=== PATIENT | female | born 1935 | race Caucasian/White ===

== ENCOUNTER 2023-12-03 20:48 | Inpatient (IN) | payer MEDICARE ==
[2023-12-03 23:25] VITALS: BMI 21.4
[2023-12-04] MEDS ORDERED: Acetaminophen 325 MG TAB PO PRN (00:27)
[2023-12-04] MEDS ORDERED: Acetaminophen 650 MG Suppository PR PRN (00:27)
[2023-12-04] MEDS ORDERED: hydrALAZINE 20 MG/ML VIAL SLOW IVP PRN (00:27)
[2023-12-04] MEDS ORDERED: Labetalol HCl 100 MG/20 ML VIAL SLOW IVP PRN (00:27)
[2023-12-04 01:58] LABS: #Basophils 0.06 10x3/uL (0.0-0.2); %Basophils 0.8 % (0.0-1.0); %Eosinophils 1.9 % (0.0-10.0); %Lymphocytes 25.5 % (21.0-51.0); %Monocytes 6.9 % (0.0-10.0); %Neutrophils 64.5 % (42.0-75.0); Hematocrit 41.4 % (36.0-47.0); Hemoglobin 12.6 g/dL (12.0-16.0); Mean Corpuscular HGB CONC 30.4 g/dL (32.0-36.0); Mean Corpuscular Hemoglobin 28.3 pg (27.0-31.0); Mean Corpuscular Volume 92.8 fL (78.0-98.0); Mean Platelet Volume 10.4 fL (7.4-10.4); Platelet Count 205 10x3/uL (130-400); RBC Distribution Width 13.6 % (11.5-14.5); Red Blood Cell (RBC) Count 4.46 mill/uL (4.20-5.40)
[2023-12-04 02:05] LABS: Hemoglobin A1c 5.5 % (4.0-6.0)
[2023-12-04 02:07] LABS: Anion Gap 13 mmol/L (10-20); BUN (Urea Nitrogen) 34 mg/dL (9.8-20.1); Calc. Creatinine Clearance 28 mL/min (70-130); Calcium 9.3 mg/dL (7.8-10.44); Carbon Dioxide 20 mmol/L (23-31); Cardiac Risk 3.4 (Less than 4.5); Chloride 107 mmol/L (98-107); Cholesterol 152 mg/dl (< 200 Desired); Estimated GFR 39; Glucose 96 mg/dL (83-110); HDL Cholesterol 45 mg/dL (>60 Neg Risk); LDL Cholesterol, Calculated 94 mg/dL; Sodium 136 mmol/L (136-145); Triglycerides 63 mg/dL (Less than 150)
[2023-12-04] MEDS: Melatonin 3 MG TAB PO SCH (07:45)
[2023-12-04] MEDS: Aspirin 81 mg Enteric Coated Tablet PO SCH (08:42)
[2023-12-04] MEDS: Folic Acid 1 MG TAB PO SCH (08:42)
[2023-12-04] MEDS: Melatonin 3 MG TAB PO PRN (21:10)
[2023-12-04] MEDS: Atorvastatin Calcium 40 MG TAB PO SCH (21:10)
[2023-12-05 09:32] LABS: #Basophils 0.03 10x3/uL (0.0-0.2); %Basophils 0.5 % (0.0-1.0); %Eosinophils 2.2 % (0.0-10.0); %Lymphocytes 21.9 % (21.0-51.0); %Monocytes 5.6 % (0.0-10.0); %Neutrophils 69.5 % (42.0-75.0); Hematocrit 41.1 % (36.0-47.0); Hemoglobin 13.1 g/dL (12.0-16.0); Mean Corpuscular HGB CONC 31.9 g/dL (32.0-36.0); Mean Corpuscular Hemoglobin 28.4 pg (27.0-31.0); Mean Platelet Volume 10.2 fL (7.4-10.4); Platelet Count 206 10x3/uL (130-400); RBC Distribution Width 13.6 % (11.5-14.5); Red Blood Cell (RBC) Count 4.62 mill/uL (4.20-5.40)
[2023-12-05 09:48] LABS: Anion Gap 11 mmol/L (10-20); BUN (Urea Nitrogen) 20 mg/dL (9.8-20.1); Calc. Creatinine Clearance 31 mL/min (70-130); Calcium 9.5 mg/dL (7.8-10.44); Carbon Dioxide 27 mmol/L (23-31); Chloride 108 mmol/L (98-107); Estimated GFR 45; Glucose 118 mg/dL (83-110); Potassium 4.1 mmol/L (3.5-5.1); Sodium 142 mmol/L (136-145)
[2023-12-05 11:44] VITALS: BP 160/67; TEMP 97.1
== END 2023-12-05 14:58 | disposition home or self-care (01) | DRG 69 ==
LOC: 2SW 23:12 → OBSVTOIN 12-05 10:19
PROVIDERS: ADMIT Internal Medicine; ATTEND Internal Medicine
DX: G45.9 Transient cerebral ischemic attack, unspecified (principal); I10 Essential (primary) hypertension; G62.9 Polyneuropathy, unspecified; Z66 Do not resuscitate; I65.23 Occlusion and stenosis of bilateral carotid arteries; Z90.5 Acquired absence of kidney; Z85.528 Personal history of other malignant neoplasm of kidney; Z88.1 Allergy status to other antibiotic agents; Z88.8 Allergy status to other drugs, medicaments and biological substances; Z79.899 Other long term (current) drug therapy; Z90.49 Acquired absence of other specified parts of digestive tract; Z90.710 Acquired absence of both cervix and uterus
CPT/HCPCS: 36415; 70551; 80048; 80061; 83036; 85025; 93306

== ENCOUNTER 2024-03-07 19:17 | Observation (INO) | payer MEDICARE ==
[2024-03-07 22:44] VITALS: BMI 21.0
[2024-03-07] MEDS ORDERED: hydrALAZINE 20 MG/ML VIAL SLOW IVP PRN (23:33)
[2024-03-07] MEDS ORDERED: Labetalol HCl 100 MG/20 ML VIAL SLOW IVP PRN (23:33)
[2024-03-08] MEDS ORDERED: Senokot S 8.6-50 MG TAB PO PRN (00:03)
[2024-03-08] MEDS ORDERED: Ondansetron PF 4 MG/2 ML Vial IVP PRN (00:05)
[2024-03-08] MEDS ORDERED: traMADol HCl 50 MG TAB PO PRN (00:05)
[2024-03-08] MEDS ORDERED: Ondansetron ODT 4 MG TAB PO PRN (00:05)
[2024-03-08] MEDS ORDERED: Melatonin 3 MG TAB PO PRN (00:08)
[2024-03-08] MEDS: Sodium Chloride 0.9% 1,000 ML IV SCH (04:12)
[2024-03-08 05:42] LABS: #Basophils 0.04 10x3/uL (0.0-0.2); %Basophils 0.6 % (0.0-1.0); %Eosinophils 2.9 % (0.0-10.0); %Lymphocytes 23.7 % (21.0-51.0); %Monocytes 6.6 % (0.0-10.0); %Neutrophils 65.9 % (42.0-75.0); Hematocrit 37.3 % (36.0-47.0); Mean Corpuscular HGB CONC 32.2 g/dL (32.0-36.0); Mean Corpuscular Hemoglobin 28.8 pg (27.0-31.0); Mean Corpuscular Volume 89.4 fL (78.0-98.0); Mean Platelet Volume 10.2 fL (7.4-10.4); Platelet Count 201 10x3/uL (130-400); Red Blood Cell (RBC) Count 4.17 mill/uL (4.20-5.40)
[2024-03-08] MEDS: Acetaminophen 325 MG TAB PO SCH (05:47)
[2024-03-08 06:03] LABS: ALT (SGPT) 8 U/L (8-55); AST (SGOT) 14 U/L (5-34); Albumin 3.2 g/dL (3.4-4.8); Alkaline Phosphatase 78 U/L (40-110); Anion Gap 13 mmol/L (10-20); BUN (Urea Nitrogen) 22 mg/dL (9.8-20.1); Bilirubin, Total 0.4 mg/dL (0.2-1.2); Calc. Creatinine Clearance 25 mL/min (70-130); Carbon Dioxide 21 mmol/L (23-31); Cardiac Risk 3.1 (Less than 4.5); Chloride 113 mmol/L (98-107); Cholesterol 143 mg/dl (< 200 Desired); Estimated GFR 36; Globulin 2.8 g/dL (2.4-3.5); Glucose 97 mg/dL (83-110); HDL Cholesterol 46 mg/dL (>60 Neg Risk); LDL Cholesterol, Calculated 86 mg/dL; Potassium 3.9 mmol/L (3.5-5.1); Sodium 143 mmol/L (136-145); Triglycerides 53 mg/dL (Less than 150)
[2024-03-08] MEDS ORDERED: Aspirin 81 mg Enteric Coated Tablet PO SCH (09:00)
[2024-03-08] MEDS ORDERED: Loratadine 10 MG TAB PO PRN (09:00)
[2024-03-08] MEDS: Folic Acid 1 MG TAB PO SCH (09:50)
[2024-03-08] MEDS: Cholecalciferol 1,000 UNITS (25 MCG) TAB PO SCH (09:50)
[2024-03-08] MEDS: Aspirin 81 mg Enteric Coated Tablet PO SCH (09:50)
[2024-03-08] MEDS: Famotidine 20 MG TAB PO SCH (09:51)
[2024-03-08] MEDS: Enoxaparin 30 MG (0.3 mL) SYRINGE SC SCH (09:52)
[2024-03-08 10:46] VITALS: TEMP 97.5
[2024-03-08 11:40] VITALS: BP 160/76
[2024-03-08] MEDS ORDERED: Atorvastatin Calcium 40 MG TAB PO SCH ×2 (21:00)
[2024-03-08] MEDS ORDERED: Gabapentin 100 MG CAP PO SCH (21:00)
== END 2024-03-08 17:05 | disposition home or self-care (01) ==
LOC: 2SE 21:48
PROVIDERS: ADMIT Internal Medicine; ATTEND Internal Medicine
PROC: B246YZZ Ultrasonography of Right and Left Heart using Other Contrast (ICD-10-PCS; principal; 2024-03-07)
DX: R29.898 Other symptoms and signs involving the musculoskeletal system (principal); G24.4 Idiopathic orofacial dystonia; I12.9 Hypertensive chronic kidney disease with stage 1 through stage 4 chronic kidney disease, or unspecified chronic kidney disease; N17.9 Acute kidney failure, unspecified; N18.30 Chronic kidney disease, stage 3 unspecified; G62.89 Other specified polyneuropathies; Z88.6 Allergy status to analgesic agent; Z88.8 Allergy status to other drugs, medicaments and biological substances; Z79.899 Other long term (current) drug therapy; Z79.82 Long term (current) use of aspirin; Z90.5 Acquired absence of kidney; Z90.49 Acquired absence of other specified parts of digestive tract; Z90.710 Acquired absence of both cervix and uterus; Z98.890 Other specified postprocedural states
CPT/HCPCS: 70551; 72148; 76775; 80053; 80061; 82962; 85025; 87040; 87149 ×2; 93306; 96372; 97116; G0378; J1650; J7030; 36415; 36416